=== PATIENT | male | born 2000 | race Caucasian/White ===

== ENCOUNTER 2020-01-17 20:23 | Emergency (ER) | payer BC ==
[2020-01-17] MEDS ORDERED: Ondansetron 4 MG Tab.DIS PO ONE ×2 (20:24→20:42)
[2020-01-17] MEDS ORDERED: Loperamide 2 MG Cap PO ONE (20:46)
--- NOTE | 2020-01-17 20:51 | EDM.PDOC ---
ED HPI GENERAL MEDICAL PROBLEM - General Chief Complaint: Gastrointestinal Problem Stated Complaint: ABDOMIAL PAIN; VOMITING; DIARHEA Time Seen by Provider: 01/17/20 20:35 Source of Information: Reports: Patient, RN History Limitations: Reports: No Limitations - History of Present Illness INITIAL COMMENTS - FREE TEXT/NARRATIVE: 19 yo male presents with a 2 week hx of diarrhea and a one week hx of vomiting. Is occasionally dizzy with standing. No fever or bleeding. No known exposures. Has not been to the clinic. No self tx. No hx of inflammatory bowel dz. No recent travels. Works at [employer]. Onset: Gradual Onset Date: 01/04/20 Duration: Week(s): (2), Waxing/Waning Location: Reports: Abdomen Quality: Reports: Other (no pain) Severity: Mild Improves with: Reports: None Worsens with: Reports: Other (unknown) Context: Reports: Other (See HPI) Associated Symptoms: Reports: Cough (rare, onset today.), Nausea/Vomiting. Denies: Fever/Chills, Headaches, Rash, Shortness of Breath Treatments [employer]: Reports: Other (see below) (none) lower abd Pain Score (Numeric/FACES): 4 - Related Data Allergies Allergy/AdvReac Type Severity Reaction Status Date / Time adhesive tape Allergy Rash Verified 01/17/20 20:39 Home Meds: Home Meds NK [No Known Home Meds] 01/17/20 [History] ED ROS GENERAL - Review of Systems Review Of Systems: See Below Constitutional: Reports: No Symptoms HEENT: Reports: No Symptoms Respiratory: Reports: No Symptoms Cardiovascular: Reports: No Symptoms Endocrine: Reports: No Symptoms GI/Abdominal: Reports: Diarrhea, Decreased Appetite, Nausea, Vomiting. Denies: Abdominal Pain, Black Stool, Bloody Stool, Constipation, Distension, Flatus, Hematemesis, Hematochezia, Melena : Reports: No Symptoms Musculoskeletal: Reports: No Symptoms Skin: Reports: No Symptoms Neurological: Reports: No Symptoms ED EXAM, GI/ABD - Physical Exam Exam: See Below Exam Limited By: No Limitations General Appearance: Alert, WD/WN, No Apparent Distress Eyes: Bilateral: Normal Appearance Ears: Normal External Exam, Normal Canal, Hearing Grossly Normal Nose: Normal Inspection, No Blood Throat/Mouth: Normal Inspection, Normal Lips, Normal Oropharynx, Normal Voice, No Airway Compromise Head: Atraumatic, Normocephalic Neck: Normal Inspection Respiratory/Chest: No Respiratory Distress, Lungs Clear, Normal Breath Sounds, No Accessory Muscle Use Cardiovascular: Regular Rate, Rhythm, No Edema GI/Abdominal Exam: Normal Bowel Sounds, Soft, Non-Tender, No Distention Back Exam: Normal Inspection. No: CVA Tenderness (R), CVA Tenderness (L) Extremities: Normal Inspection, Normal Range of Motion, Non-Tender, No Pedal Edema. No: Pedal Edema Neurological: Alert, Oriented, CN II-XII Intact, Normal Cognition, No Motor/ Sensory Deficits Psychiatric: Normal Affect, Normal Mood Skin Exam: Warm, Dry, Intact, Normal Color, No Rash Course - Vital Signs Last Recorded V/S: Last Vital Signs Temp 36.8 C 01/17/20 20:23 Pulse 73 01/17/20 20:23 Resp 17 01/17/20 20:23 BP 140/72 01/17/20 20:23 Pulse Ox 99 01/17/20 20:23 Orthostatic Blood Pressure [ 131/61 Standing] Orthostatic Blood Pressure [ 140/58 Sitting] Orthostatic Blood Pressure [ 135/60 Supine] - Orders/Labs/Meds Orders: Active Orders 24 hr Category Date Time Status Orthostatic Vital Signs [RC] ASDIRECTED Care 01/17/20 20:45 Active CORONAVIRUS COVID-19, HEBERT Routine Lab 01/17/20 20:58 Received INPATIENT Routine Lab 01/17/20 20:58 Received Labs: Laboratory Tests 01/17/20 Range/Units 21:05 Sodium 140 (135-145) mmol/L Potassium 3.4 L (3.5-5.3) mmol/L Chloride 104 (100-110) mmol/L Carbon Dioxide 30 (21-32) mmol/L BUN 17 (7-18) mg/dL Creatinine 1.0 (0.70-1.30) mg/dL Est Cr Clr Drug Dosing 126.55 mL/min Estimated GFR (MDRD) > 60 (>60) BUN/Creatinine Ratio 17.0 (9-20) Glucose 98 (80-116) mg/dL Calcium 9.1 (8.2-10.1) mg/dL Meds: Medications Discontinued Medications Generic Name Dose Route Start Last Admin Trade Name Freq PRN Reason Stop Dose Admin Loperamide HCl 2 mg 01/17/20 20:46 01/17/20 21:01 Imodium PO 01/17/20 20:47 2 mg ONETIME ONE Administration Ondansetron HCl 4 mg 01/17/20 20:42 01/17/20 20:46 Zofran Odt PO 01/17/20 20:43 4 mg ONETIME ONE Administration Potassium Chloride 30 meq 01/17/20 21:39 Klor-Con 10 PO 01/17/20 21:40 ONETIME ONE Departure - Departure Time of Disposition: 22:28 Disposition: Home, Self-Care 01 Condition: Fair Clinical Impression: Viral gastroenteritis, Hypokalemia - Discharge Information *PRESCRIPTION DRUG MONITORING PROGRAM REVIEWED*: Not Applicable *COPY OF PRESCRIPTION DRUG MONITORING REPORT IN PATIENT REMI: Not Applicable Instructions: Viral Gastroenteritis, Adult Referrals: PCP,None [Primary Care Provider] - Forms: ED Department Discharge Additional Instructions: Zofran ODT 4 mg every 6 hrs as needed for nausea. Loperamide per package instructions for diarrhea control. Acetaminophen as needed for pain relief. Eat the following as long as the diarrhea persists: Bananas, rice, applesauce, dry white toast, yogurt, chicken or turkey rice soup, soda crackers + any clear liquids. Recheck if not improving by midweek. Sepsis Event Note (ED) - Evaluation Sepsis Screening Result: No Definite Risk - Focused Exam Vital Signs: Vital Signs Temp Pulse Resp BP Pulse Ox 01/17/20 20:23 36.8 C 73 17 140/72 99 - My Orders Last 24 Hours: My Active Orders 01/17/20 20:45 Orthostatic Vital Signs [RC] ASDIRECTED 01/17/20 20:58 CORONAVIRUS COVID-19, HEBERT Routine INPATIENT Routine - Assessment/Plan Last 24 Hours: My Active Orders 01/17/20 20:45 Orthostatic Vital Signs [RC] ASDIRECTED 01/17/20 20:58 CORONAVIRUS COVID-19, HEBERT Routine INPATIENT Routine
[2020-01-17] MEDS ORDERED: Potassium Chloride 10 MEQ Tab.ER PO ONE (21:39)
== END 2020-01-17 22:40 | disposition home or self-care (01) ==
LOC: FB.ED 20:23
DX: A08.4 Viral intestinal infection, unspecified (principal); E87.6 Hypokalemia; Z91.048 Other nonmedicinal substance allergy status
CPT/HCPCS: 36415; 80048; 87635; 99284; A9270; U0002

== ENCOUNTER 2020-10-08 11:40 | Emergency (ER) | payer BC ==
[2020-10-08] MEDS ORDERED: Silver Sulfadiazine 1% Crm 50 GM Tube TOP ONE (11:41)
[2020-10-08] MEDS ORDERED: Acetaminophen/oxyCODONE 325-5 MG Tab PO ONE (11:41)
[2020-10-08] MEDS ORDERED: Ketorolac 30 MG/ML SDV IVPUSH ONE (11:55)
[2020-10-08] MEDS ORDERED: HYDROmorphone 2 MG/ML SDV IVPUSH ONE ×3 (12:00→14:53)
[2020-10-08] MEDS ORDERED: Sodium Chloride 0.9% 1,000 ML IV ONE (12:00)
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
[2020-10-08] MEDS ORDERED: Silver Sulfadiazine 1% Crm 50 GM Tube TOP SCH (15:00)
[2020-10-08] MEDS ORDERED: Lidocaine 2% Viscous Solution 15 ML Cup PO ONE (16:00)
[2020-10-08] MEDS ORDERED: Lidocaine 2% Viscous Solution 15 ML Cup ONE (20:39)
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
== END 2020-10-08 16:45 | disposition home or self-care (01) ==
LOC: FB.ED 11:40
DX: T23.201A Burn of second degree of right hand, unspecified site, initial encounter (principal); T23.202A Burn of second degree of left hand, unspecified site, initial encounter; T22.212A Burn of second degree of left forearm, initial encounter; X10.2XXA Contact with fats and cooking oils, initial encounter
CPT/HCPCS: 16020; 71045; 96374; 96375; 96376; 99283; A9270; J1170; J1885; J7030